=== PATIENT | female | born 1940 | race Caucasian/White ===

== ENCOUNTER 2017-07-08 18:58 | Outpatient (CLI) | payer MEDICARE | END 2017-07-08 18:59 | disposition home or self-care (01) | LOC: NAV LABSP 18:58 | PROVIDERS: ATTEND Internal Medicine | DX: E87.5 Hyperkalemia (principal) ==

== ENCOUNTER 2017-07-08 23:21 | Emergency (ER) | payer MEDICARE ==
[2017-07-08 23:58] LABS: #Basophils 0.1 thou/uL (0.0-0.2); #Eosinphils 0.3 thou/uL (0.0-0.7); #Lymphocytes 1.4 thou/uL (1.20-3.40); #Monocytes 0.6 thou/uL (0.11-0.59); #Neutrophils 3.6 thou/uL (1.40-6.50); %Eosinophils 4.6 % (0.0-10.0); %Lymphocytes 23.7 % (21.0-51.0); %Neutrophils 60.7 % (42.0-75.0); Hemoglobin 7.5 g/dL (12.0-16.0); Hypochromia MODERATE=16-30 cells (100X) (0-5/hpf); MDiff Complete? YES; Manual Diff?? NO; Mean Corpuscular HGB CONC 29.6 g/dL (32.0-36.0); Mean Corpuscular Hemoglobin 30.5 pg (27.0-31.0); Mean Platelet Volume 8.9 fL (7.4-10.4); PLT Morphology Comment Appears Adequate; Platelet Count 141 thou/uL (130-400); RBC Distribution Width 15.4 % (11.5-14.5); Red Blood Cell (RBC) Count 2.47 mill/uL (4.20-5.40); White Blood Cell (WBC) Count 5.9 thou/uL (4.8-10.8)
[2017-07-09] MEDS ORDERED: HYDROcodone/Acetaminophen 10/325 mg Tablet ONE (00:10)
[2017-07-09] MEDS ORDERED: Albuterol Sulfate 2.5 mg/0.5 ml Neb ONE (00:13)
[2017-07-09] MEDS ORDERED: Insulin Regular 300 UNITS/3 ML VIAL ONE (00:14)
[2017-07-09] MEDS ORDERED: Dextrose 50% Abboject 50 ML SYRINGE ONE (00:14)
[2017-07-09] MEDS ORDERED: Calcium Chloride 1 GM/10 ML Abboject SYRINGE ONE (00:15)
[2017-07-09 00:16] LABS: ALT (SGPT) 18 U/L (8-55); AST (SGOT) 17 U/L (5-34); Albumin 3.1 g/dL (3.4-4.8); Alkaline Phosphatase 154 U/L (40-150); Anion Gap 11 mmol/L (10-20); BUN (Urea Nitrogen) 73 mg/dL (9.8-20.1); Bilirubin, Total 0.4 mg/dL (0.2-1.2); CKMB 4.3 ng/mL (0-6.6); Calc. Creatinine Clearance 0 mL/min (70-130); Calcium 8.7 mg/dL (7.8-10.44); Carbon Dioxide 26 mmol/L (23-31); Chloride 100 mmol/L (98-107); Estimated GFR-MDRD 26; Globulin 3.9 g/dL (2.4-3.5); Glucose 214 mg/dL (83-110); Potassium 6.4 mmol/L (3.5-5.1); Sodium 131 mmol/L (136-145); Troponin I 0.019 ng/mL (< 0.028)
[2017-07-09] MEDS ORDERED: ALPRAZolam 0.25 MG TAB ONE (00:30)
[2017-07-09] MEDS ORDERED: Sodium Chloride 0.9% 1,000 ML ONE (00:30)
--- NOTE | 2017-07-09 07:33 | RAD ---
SINGLE VIEW OF THE CHEST: COMPARISON: 06/14/17. HISTORY: Recent trouble with postoperative wound infection in orthopedic surgery. Weakness and fever. FINDINGS: Single view of the chest shows a normal sized cardiomediastinal silhouette. There is no evidence of consolidation, mass, or pleural effusion. The bones are unremarkable. IMPRESSION: No evidence of acute cardiopulmonary disease. POS: [facility]
== END 2017-07-09 01:09 | disposition short-term general hospital (02) ==
LOC: NAV ERS 23:21
DX: E87.5 Hyperkalemia (principal); D64.9 Anemia, unspecified; E05.90 Thyrotoxicosis, unspecified without thyrotoxic crisis or storm; K21.9 Gastro-esophageal reflux disease without esophagitis; E78.5 Hyperlipidemia, unspecified; I10 Essential (primary) hypertension; E11.40 Type 2 diabetes mellitus with diabetic neuropathy, unspecified; E66.9 Obesity, unspecified; J45.909 Unspecified asthma, uncomplicated; F41.9 Anxiety disorder, unspecified; F32.9 Major depressive disorder, single episode, unspecified; Z79.4 Long term (current) use of insulin; Z79.899 Other long term (current) drug therapy
CPT/HCPCS: 51701; 71010; 82553; 84484; 93005; 94640; 94760; 96361; 96374; 96375; J1815; J7050; J7611

== ENCOUNTER 2017-07-27 13:40 | Emergency (ER) | payer MEDICARE ==
[2017-07-27] MEDS ORDERED: Bacitracin Zinc 1 Packet ONE (13:58)
== END 2017-07-27 14:12 | disposition home or self-care (01) ==
LOC: NAV ERS 13:40
DX: Z46.82 Encounter for fitting and adjustment of non-vascular catheter (principal); I10 Essential (primary) hypertension; K21.9 Gastro-esophageal reflux disease without esophagitis; E78.5 Hyperlipidemia, unspecified; E11.9 Type 2 diabetes mellitus without complications; E66.9 Obesity, unspecified; J44.9 Chronic obstructive pulmonary disease, unspecified; F41.9 Anxiety disorder, unspecified; F32.9 Major depressive disorder, single episode, unspecified; Z79.899 Other long term (current) drug therapy; Z79.4 Long term (current) use of insulin
CPT/HCPCS: 99284

== ENCOUNTER 2018-05-12 16:45 | Inpatient (IN) | payer MEDICARE ==
[2018-05-12] MEDS ORDERED: Acetaminophen 325 MG TAB PO PRN (19:18)
[2018-05-12] MEDS: Penicillin V Potassium 250 MG TAB PO SCH (20:02)
[2018-05-12] MEDS: Metoprolol Tartrate 50 MG TAB PO SCH (20:02)
[2018-05-12] MEDS: Famotidine 20 MG TAB PO SCH (20:02)
[2018-05-12] MEDS: Gabapentin 300 MG CAP PO SCH (20:03)
[2018-05-12] MEDS: HYDROcodone/Acetaminophen 10/325 mg Tablet PO PRN (20:03)
[2018-05-12] MEDS: traZODone HCl 50 MG TAB PO SCH (20:04)
[2018-05-12] MEDS: Doxepin HCl 25 MG CAP PO SCH (20:30)
[2018-05-12] MEDS: Bisacodyl 5 MG TAB PO PRN (22:16)
[2018-05-12] MEDS: Nystatin Cream 15 GM TUBE TOP SCH (22:18)
[2018-05-13] MEDS: Ondansetron ODT 4 MG TAB PO PRN (00:57)
[2018-05-13] MEDS: HYDROcodone/Acetaminophen 10/325 mg Tablet PO PRN ×5 (01:10→21:21)
[2018-05-13 05:27] LABS: #Basophils 0.1 thou/uL (0.0-0.2); #Eosinphils 0.3 thou/uL (0.0-0.7); #Monocytes 0.5 thou/uL (0.11-0.59); %Eosinophils 5.4 % (0.0-10.0); %Lymphocytes 20.1 % (21.0-51.0); %Monocytes 11.1 % (0.0-10.0); %Neutrophils 61.4 % (42.0-75.0); Hemoglobin 8.1 g/dL (12.0-16.0); Mean Corpuscular HGB CONC 31.1 g/dL (32.0-36.0); Mean Corpuscular Hemoglobin 27.1 pg (27.0-31.0); Mean Corpuscular Volume 87.1 fL (78.0-98.0); Mean Platelet Volume 7.2 fL (7.4-10.4); Platelet Count 191 thou/uL (130-400); RBC Distribution Width 16.4 % (11.5-14.5); Red Blood Cell (RBC) Count 2.99 mill/uL (4.20-5.40); White Blood Cell (WBC) Count 4.9 thou/uL (4.8-10.8)
[2018-05-13 05:47] LABS: ALT (SGPT) 12 U/L (8-55); AST (SGOT) 12 U/L (5-34); Albumin 2.7 g/dL (3.4-4.8); Alkaline Phosphatase 122 U/L (40-150); Anion Gap 13 mmol/L (10-20); BUN (Urea Nitrogen) 38 mg/dL (9.8-20.1); Bilirubin, Total 0.5 mg/dL (0.2-1.2); Calc. Creatinine Clearance 65 mL/min (70-130); Calcium 8.6 mg/dL (7.8-10.44); Carbon Dioxide 31 mmol/L (23-31); Chloride 97 mmol/L (98-107); Estimated GFR-MDRD 37; Globulin 4.1 g/dL (2.4-3.5); Glucose 179 mg/dL (83-110); Protein, Total 6.8 g/dL (6.0-8.3); Sodium 136 mmol/L (136-145)
[2018-05-13] MEDS: Levothyroxine Sodium 125 MCG TAB PO SCH (06:10)
[2018-05-13] MEDS: Insulin NPH/Reg Insulin Hm 300 UNITS/3 ML VIAL SC SCH ×2 (08:27→17:16)
[2018-05-13] MEDS: Penicillin V Potassium 250 MG TAB PO SCH ×2 (08:28→21:04)
[2018-05-13] MEDS: Amlodipine 5 MG TAB PO SCH (08:28)
[2018-05-13] MEDS: Gabapentin 300 MG CAP PO SCH ×2 (08:28→21:04)
[2018-05-13] MEDS: Ferrous Sulfate 325 MG TAB PO SCH (08:29)
[2018-05-13] MEDS: Metoprolol Tartrate 50 MG TAB PO SCH ×2 (08:29→21:04)
[2018-05-13] MEDS: Doxepin HCl 25 MG CAP PO SCH ×2 (08:29→21:04)
[2018-05-13] MEDS: Famotidine 20 MG TAB PO SCH ×2 (08:29→21:05)
[2018-05-13] MEDS: Nystatin Cream 15 GM TUBE TOP SCH ×2 (08:30→15:34)
[2018-05-13 11:19] LABS: Bilirubin Negative (Negative); Blood, Urine Small (Negative); Clarity Slightly Cloudy (Clear); Glucose, Urine (Dipstick) Negative (Negative); Leukocyte Trace (Negative); Nitrite Negative (Negative); Protein, Urine (Dipstick) 30 mg/dL (Neg-Trace); pH, Urine 5.5 (5.0-9.0)
[2018-05-13] MEDS: hydrOXYzine 25 MG TAB PO PRN ×3 (11:39→21:04)
[2018-05-13 11:40] LABS: Bacteria/HPF Rare-Few HPF (None Seen); RBC/HPF 0-3 HPF (0-3); WBC/HPF 0-3 HPF (0-3); Yeast-All Forms Rare HPF (None Seen)
[2018-05-13] MEDS: traZODone HCl 50 MG TAB PO SCH (21:04)
--- NOTE | 2018-05-13 22:55 | HP ---
DATE OF ADMISSION: To the [facility] on 05/13/2018 HISTORY OF PRESENT ILLNESS: The patient is a 77-year-old white female previously known by myself whe n she was in the [facility] where she had open reduction and internal fixation of r ight ankle fracture. At that time, she did poorly with therapy because of noncompliance and because of chronic pain and lack of pain relief. Since that time; however, she has been living in assisted a nd disabled apartment, not ambulating well, and has had dependent edema and swelling of both lower le gs. She has developed a cellulitis and was admitted to [place] with distensible recurrence of the cellulitis; however, after treatment, it was felt that she had lymphedema with the risk for recurren t cellulitis, but no active cellulitis at this time. She also has a history of diastolic heart failu re, COPD, morbid obesity with dyspnea limiting her exercise capability. She, however, is admitted to [facility] as she is stating that she wishes to continue with PT. She is walking at this time with a walker with main complaint of dyspnea on exertion, but not stopping her therapy and a re current rash over entire body, which has been evaluated at [facility] with biopsy, which showed no ev idence of fungus or cellulitis, but more like psoriasis. This is being evaluated further by [facility], Pathology; however, treatment is limited by a history of an allergy to cortisone crea m. PAST MEDICAL HISTORY: Also remarkable for nonerosive gastritis, dyslipidemia, diabetes type 2, anxie ty and depression, chronic pain, hypertension. PAST SURGICAL HISTORY: Positive for the open reduction and internal fixation of right tibia fracture , bilateral shoulder repair, bilateral knee surgeries, cholecystectomy. REVIEW OF SYSTEMS: HEENT: She denies any headaches, dizziness, change in vision or hearing, hoarsen ess or dysphagia. Pulmonary: She has chronic dyspnea, but with no cough, sputum production or wheez ing. Cardiovascular: She has occasional pain, but had no diagnosis of angina cardiac enzymes. Gastrointestinal: She has no nausea, vomiting, diarrhea, constipation, or abdominal pain. Genitou rinary: She denies dysuria, hematuria, or nocturia. Musculoskeletal: She has chronic pain in her b ack and legs. There are swelling and tenderness of both legs with erythema, but with no drainage. N eurologic: She denies localized numbness, weakness in arms or extremities. PHYSICAL EXAMINATION: GENERAL: Patient is a morbidly obese white female, sitting up in bed, eating supper, is oriented x3 and cooperative. VITAL SIGNS: Pulse is 62, temperature is 99, respirations 18, O2 sats 97% on room air, blood pressur e 140/63. HEENT: Pupils are equal, round, and react to light and accommodation. Sclerae are anicteric. Conju nctivae pale. Oral mucous membranes well hydrated. NECK: Supple. There are no nodes or masses. JVP is not elevated. LUNGS: Show decreased breath sounds in the bases. No rales or rhonchi. CARDIAC: Shows rapid regular rhythm. No gallops or murmurs. ABDOMEN: Soft and nontender. SKIN AND EXTREMITIES: Display diffuse red rash over entire body, worse under the panniculus, also on the back, and lower legs with no drainage or warmth. NEUROLOGICAL: Shows diffuse weakness, but no focal findings. Cranial nerves are intact. LABORATORY DATA: Shows a white count of 4900, hematocrit 26, hemoglobin 8.1, sodium 136, potassium 5 .0, chloride 97, bicarbonate 31, BUN 38, creatinine 1.37, glucose 179. Accu-Cheks range from 193 to 224. Liver function studies within normal limits. Urinalysis within normal limits. Pathology of th e skin biopsy as mentioned above shows psoriasiform findings with no fungus or bacterial infection. ASSESSMENT AND PLAN: 1. A 77-year-old white female with history of morbid obesity, subsequent fatty liver, who presents w ith recurrent erythema and tenderness. Lymphedema of her legs with no evidence of infection. She go s been in a wheelchair, but had been walking previously despite distant open reduction and internal f ixation of right ankle and will start on PT and OT. 2. Her psoriasiform rash cannot be treated with steroids, so will start on Elidel. Monitor response . 3. Diabetic steatohepatitis. We will be monitored closely with no evidence of at this time. 4. Type 2 diabetes. We will be treated with sliding scale and her previous medication. 5. Acute kidney injury. We will be monitored closely as appears to have stabilized. We will contin ue to monitor. 6. Severe deconditioning. We will be started on PT with only pain medications as ordered. 7. Chronic pain. We will be treated any different medications that had been treated previously.
[2018-05-14] MEDS: HYDROcodone/Acetaminophen 10/325 mg Tablet PO PRN ×6 (01:21→23:31)
[2018-05-14] MEDS: Levothyroxine Sodium 125 MCG TAB PO SCH (05:41)
[2018-05-14] MEDS: hydrOXYzine 25 MG TAB PO PRN ×3 (05:42→15:23)
[2018-05-14] MEDS: Insulin NPH/Reg Insulin Hm 300 UNITS/3 ML VIAL SC SCH ×2 (08:37→17:22)
[2018-05-14] MEDS: Gabapentin 300 MG CAP PO SCH ×2 (08:38→22:01)
[2018-05-14] MEDS: Amlodipine 5 MG TAB PO SCH (08:38)
[2018-05-14] MEDS: Penicillin V Potassium 250 MG TAB PO SCH ×2 (08:38→22:01)
[2018-05-14] MEDS: Doxepin HCl 25 MG CAP PO SCH ×2 (08:38→22:01)
[2018-05-14] MEDS: Ferrous Sulfate 325 MG TAB PO SCH (08:38)
[2018-05-14] MEDS: Famotidine 20 MG TAB PO SCH ×2 (08:38→22:00)
[2018-05-14] MEDS: Metoprolol Tartrate 50 MG TAB PO SCH ×2 (08:38→22:00)
--- NOTE | 2018-05-14 16:05 | PRG ---
DATE OF SERVICE: 05/14/2018 SUBJECTIVE: The patient feels well, sitting up in the bed, is cooperating with therapy with only com plaint of her right knee giving way. PT agrees with this knee to be unstable. However, she is eatin g well and is having controlled pain. She is still having problems with itching and a cream that was ordered for her psoriasiform rash has not returned, as she is unable to tolerate steroid creams. OBJECTIVE: Shows, VITAL SIGNS: Blood pressure is 155/67, pulse 59, O2 sats 96% on 1-1/2 liters, respirations 56. ABDOMEN: Obese and nontender with no masses or organomegaly. SKIN AND EXTREMITIES: Show 2+ edema, no clubbing, cyanosis. Show diffuse excoriated areas of erythe ma and mild papular vesicular rash. ASSESSMENT: 1. Improving deconditioning, resolving lymphedema, cellulitis of the legs, on oral antibiotics and c ompression wraps. 2. Persistent rash of unknown etiology with biopsy consistent with psoriasiform rash. 3. Right knee weakness, status post total knee several years ago. 4. Chronic pain, controlled on medication at this time. 5. Type 2 diabetes with fair control. 5. Diastolic heart failure, compensated at this time. PLAN: 1. Continue PT, OT, await Elidel cream for psoriasis. 2. Continue Accu-Cheks to monitor and titrate and control diabetes. 3. Continue pain relief as ordered previously with Magnolia and gabapentin. 4. Continue Humulin N 40 units in the morning and 10 units 70/30 in the evening.
[2018-05-14] MEDS: traZODone HCl 50 MG TAB PO SCH (22:01)
[2018-05-15] MEDS: Bisacodyl 5 MG TAB PO PRN (00:40)
[2018-05-15] MEDS: HYDROcodone/Acetaminophen 10/325 mg Tablet PO PRN ×5 (05:37→21:32)
[2018-05-15] MEDS: Levothyroxine Sodium 125 MCG TAB PO SCH (05:37)
[2018-05-15] MEDS: hydrOXYzine 25 MG TAB PO PRN ×5 (05:37→21:33)
[2018-05-15] MEDS: Famotidine 20 MG TAB PO SCH ×2 (08:49→21:33)
[2018-05-15] MEDS: Ferrous Sulfate 325 MG TAB PO SCH (08:49)
[2018-05-15] MEDS: Doxepin HCl 25 MG CAP PO SCH ×2 (08:49→21:33)
[2018-05-15] MEDS: Gabapentin 300 MG CAP PO SCH ×2 (08:49→21:32)
[2018-05-15] MEDS: Metoprolol Tartrate 50 MG TAB PO SCH ×2 (08:50→21:32)
[2018-05-15] MEDS: Amlodipine 5 MG TAB PO SCH (08:50)
[2018-05-15] MEDS: Insulin NPH/Reg Insulin Hm 300 UNITS/3 ML VIAL SC SCH ×2 (08:57→17:37)
[2018-05-15] MEDS: Penicillin V Potassium 250 MG TAB PO SCH ×2 (09:02→21:33)
[2018-05-15] MEDS: Ondansetron ODT 4 MG TAB PO PRN (11:51)
[2018-05-15] MEDS ORDERED: Magnesium Citrate 300 ML BOT PO SCH (13:00)
[2018-05-15] MEDS ORDERED: Permethrin 5% Cream 60 GM TUBE TOP SCH (21:00)
--- NOTE | 2018-05-15 21:11 | PRG ---
DATE OF SERVICE: 05/15/2018 SUBJECTIVE: The patient feels well except for diffuse pruritic rash with excoriation over entire bod y, also was complaining that she is not getting her pain medication and was told that she is getting exactly I was given at [place]. Her wound dressings have not been changed today, but will be stroud germán on Thursday. OBJECTIVE: VITAL SIGNS: Shows her temperature is 96.8, pulse 64, respirations 20, and O2 sats 95% on 2 liters. LUNGS: Clear. CARDIAC: Shows regular rhythm. ABDOMEN: Soft, nontender. SKIN: Diffuse excoriations and red papules over her back, chest, abdomen, and legs. ASSESSMENT: 1. Recurrent pruritic rash with negative biopsy for fungus, but awaiting new treatment for psoriasis is unable to take cortisone so we will treat empirically for possible scabies with Elimite and monit or response. 2. Chronic pain, being given medications exactly as prescribed at [place] and told that would be given. 3. Lymphedema of legs with wraps being done by [facility] to be removed and changed in 2 days. 4. Type 2 diabetes with adequate control, occasional inconsistencies, and we will not increase medic ation. 5. Diastolic heart failure, compensated at this time. 6. Chronic obstructive pulmonary disease, oxygen dependent on 1-2 liters. We will continue.
[2018-05-15] MEDS: traZODone HCl 50 MG TAB PO SCH (21:33)
[2018-05-16] MEDS: HYDROcodone/Acetaminophen 10/325 mg Tablet PO PRN ×5 (01:30→20:16)
[2018-05-16] MEDS: hydrOXYzine 25 MG TAB PO PRN ×3 (01:51→14:02)
[2018-05-16] MEDS: Bisacodyl 5 MG TAB PO PRN (06:02)
[2018-05-16] MEDS: Levothyroxine Sodium 125 MCG TAB PO SCH (06:04)
[2018-05-16] MEDS: Oxymetazoline HCl 0.05% ( 15 ML ) NASAL PRN (08:21)
[2018-05-16] MEDS: Penicillin V Potassium 250 MG TAB PO SCH ×2 (08:22→20:15)
[2018-05-16] MEDS: Gabapentin 300 MG CAP PO SCH ×2 (08:22→20:16)
[2018-05-16] MEDS: Ferrous Sulfate 325 MG TAB PO SCH (08:22)
[2018-05-16] MEDS: Famotidine 20 MG TAB PO SCH ×2 (08:22→20:16)
[2018-05-16] MEDS: Amlodipine 5 MG TAB PO SCH (08:23)
[2018-05-16] MEDS: Metoprolol Tartrate 50 MG TAB PO SCH ×2 (08:23→20:15)
[2018-05-16] MEDS: Insulin NPH/Reg Insulin Hm 300 UNITS/3 ML VIAL SC SCH ×2 (08:24→17:36)
[2018-05-16] MEDS: Doxepin HCl 25 MG CAP PO SCH ×2 (08:24→20:15)
[2018-05-16] MEDS: traZODone HCl 50 MG TAB PO SCH (20:15)
[2018-05-17] MEDS: HYDROcodone/Acetaminophen 10/325 mg Tablet PO PRN ×6 (00:29→23:55)
[2018-05-17] MEDS: hydrOXYzine 25 MG TAB PO PRN ×4 (00:29→21:41)
[2018-05-17] MEDS: Levothyroxine Sodium 125 MCG TAB PO SCH (06:23)
[2018-05-17] MEDS: Ferrous Sulfate 325 MG TAB PO SCH (08:59)
[2018-05-17] MEDS ORDERED: Insulin NPH/Reg Insulin Hm 300 UNITS/3 ML VIAL SC SCH ×2 (09:00)
[2018-05-17] MEDS: Amlodipine 5 MG TAB PO SCH (09:00)
--- NOTE | 2018-05-17 09:00 | PRG ---
DATE OF SERVICE: 05/16/2018 SUBJECTIVE: The patient is lying in the bed, complaining of itching, appears to be somewhat improved and persistent pain in her back, controlled on pain medication with no therapy done today. She has been fairly compliant to her diet. OBJECTIVE: VITAL SIGNS: Shows her temperature is 98.4, pulse 59, respirations 20, O2 sats 97% on 2 liters, bloo d pressure is 135/64. LABORATORY: Accu-Chek still elevated to 103, 264 on medications of insulin 50 units in the morning, NPH 70/30 and 10 units at night. ASSESSMENT: Uncontrolled diabetes. PLAN: 1. Increase Novolin 70/30 to 55 in the morning. Continue 10 at night. It is what the patient can a fford at home. 2. Monitor rash for improvement after treatment with Elimite. 3. Continue penicillin 250 twice daily for prevention of recurrent cellulitis and change wound dress ings with wound care. 4. Continue PT and OT.
[2018-05-17] MEDS: Gabapentin 300 MG CAP PO SCH ×2 (09:01→19:46)
[2018-05-17] MEDS: Doxepin HCl 25 MG CAP PO SCH ×2 (09:01→19:45)
[2018-05-17] MEDS: Famotidine 20 MG TAB PO SCH ×2 (09:01→19:45)
[2018-05-17] MEDS: Metoprolol Tartrate 50 MG TAB PO SCH ×2 (09:01→20:11)
[2018-05-17] MEDS: Oxymetazoline HCl 0.05% ( 15 ML ) NASAL PRN (09:02)
[2018-05-17] MEDS: Penicillin V Potassium 250 MG TAB PO SCH ×2 (09:11→19:46)
[2018-05-17] MEDS: Insulin NPH/Reg Insulin Hm 300 UNITS/3 ML VIAL SC SCH (16:31)
[2018-05-17] MEDS ORDERED: traZODone HCl 50 MG TAB ONE (20:05)
[2018-05-17] MEDS: traZODone HCl 50 MG TAB PO SCH (20:10)
[2018-05-17] MEDS: Ondansetron ODT 4 MG TAB PO PRN (20:11)
[2018-05-18] MEDS: hydrOXYzine 25 MG TAB PO PRN ×4 (04:39→19:52)
[2018-05-18] MEDS: Levothyroxine Sodium 125 MCG TAB PO SCH (04:39)
[2018-05-18] MEDS: HYDROcodone/Acetaminophen 10/325 mg Tablet PO PRN ×4 (04:39→19:47)
[2018-05-18] MEDS: Ferrous Sulfate 325 MG TAB PO SCH (08:44)
[2018-05-18] MEDS: Famotidine 20 MG TAB PO SCH ×2 (08:45→19:54)
[2018-05-18] MEDS: Gabapentin 300 MG CAP PO SCH ×2 (08:45→19:53)
[2018-05-18] MEDS: Metoprolol Tartrate 50 MG TAB PO SCH ×2 (08:45→20:04)
[2018-05-18] MEDS: Doxepin HCl 25 MG CAP PO SCH ×2 (08:45→19:59)
[2018-05-18] MEDS: Penicillin V Potassium 250 MG TAB PO SCH ×2 (08:45→19:54)
[2018-05-18] MEDS: Amlodipine 5 MG TAB PO SCH (08:45)
[2018-05-18] MEDS: Oxymetazoline HCl 0.05% ( 15 ML ) NASAL PRN (08:46)
[2018-05-18] MEDS: Insulin NPH/Reg Insulin Hm 300 UNITS/3 ML VIAL SC SCH ×2 (08:47→17:07)
--- NOTE | 2018-05-18 16:31 | PRG ---
DATE OF SERVICE: 05/18/2018 SUBJECTIVE: The patient feels somewhat better, complained of pain in her leg, but is cooperating wit h therapy, he is having decreased but persistent itching on decreased excoriation of her skin rash. States that she is still short of breath, requiring oxygen, although her O2 saturations have remained normal. OBJECTIVE: Shows O2 sats 95% on 1-1/2 liters, temperature is 98, pulse 84, respirations 18, blood pr essure 131/92, white count 4900, hematocrit 26, hemoglobin 8.1 previously. Accu-Cheks are stable 147 -274. The patient is working with physical therapy and did stand and take some steps, which states t hat her knee gave away because of knee pain, although did not appear to be weak. ASSESSMENT: Morbid obesity, chronic pain, uncontrolled diabetes, recurrent lymphedema, cellulitis, r ecurrent rash with biopsy showing pathology, but with no fungus or parasites or bacteria, but a ppeared to possibly improve after LMA. PLAN: 1. Increase Novolin 70/30-60 units every morning. Continue 10 units in the afternoon. Monitor Accu -Cheks. 2. Continue to monitor rash and attempt to obtain further information from previous biopsy. 3. Current need for oxygen, which apparently is new. According to the patient, we will discontinue oxygen and monitor sats. 4. Chronic pain. We will continue on the same pain medications as previous per agreement. 5. Resolving cellulitis and lymphedema. We will continue on penicillin.
[2018-05-19] MEDS: HYDROcodone/Acetaminophen 10/325 mg Tablet PO PRN ×5 (00:05→19:20)
[2018-05-19] MEDS: hydrOXYzine 25 MG TAB PO PRN ×4 (00:06→18:00)
[2018-05-19] MEDS: Levothyroxine Sodium 125 MCG TAB PO SCH (05:35)
[2018-05-19] MEDS: Ferrous Sulfate 325 MG TAB PO SCH (08:31)
[2018-05-19] MEDS: Doxepin HCl 25 MG CAP PO SCH ×2 (08:31→21:36)
[2018-05-19] MEDS: Gabapentin 300 MG CAP PO SCH ×2 (08:32→21:36)
[2018-05-19] MEDS: Penicillin V Potassium 250 MG TAB PO SCH ×2 (08:32→21:35)
[2018-05-19] MEDS: Amlodipine 5 MG TAB PO SCH (08:33)
[2018-05-19] MEDS: Metoprolol Tartrate 50 MG TAB PO SCH ×2 (08:36→21:35)
[2018-05-19] MEDS: Famotidine 20 MG TAB PO SCH ×2 (08:37→21:36)
[2018-05-19] MEDS: Insulin NPH/Reg Insulin Hm 300 UNITS/3 ML VIAL SC SCH ×2 (09:21→17:55)
--- NOTE | 2018-05-19 17:59 | PRG ---
DATE OF SERVICE: 05/19/2018 SUBJECTIVE: The patient feels better, sitting up in room visiting with daughter. Having persistent, but decreased itching. Denying any shortness of breath, stating however, she is unable to maintain her sugars below 130 without feeling bad and does not want to do this. She also states that she is w alking as much as she possibly can. Accu-Cheks range from 72 to 257 as the patient is very noncompliant to diet and eats whenever she wan ts and whatever she wants. The patient is cooperating with physical therapy somewhat, but can only w alk 20 feet, although she is standby assistance for transfers, needs frequent rest breaks. She is wi lling to work, but has not finished the exercise. Needs moderate assistance for bathing and assistan ce in ADLs. OBJECTIVE: VITAL SIGNS: Blood pressure is 159/81; O2 sats 94% on 1.5 liters, dropped to 78% on room air; respir ations 18; pulse 72; afebrile. LUNGS: Clear. CARDIAC: Regular rhythm. ABDOMEN: Soft and nontender, but obese. SKIN AND EXTREMITIES: Diffuse excoriations, but appeared to be slightly improved. ASSESSMENT: Morbid obesity, stable; chronic pain, stable; uncontrolled diabetes secondary to noncomp liance, stable; recurrent lymphedema, on oral penicillin to prevent cellulitis; and improved rash con sistent with psoriasis, but appears to have slightly improved with treatment for parasites with Elimi te. PLAN: Continue Novolin 70/30, 60 units in the morning and 10 units in the afternoon. Stress complia nce to diet. Continue stress cooperation with PT. Continue oxygen as she most likely requires this for the rest of her life, because of morbid obesity and most likely Pickwickian syndrome. Continue o ral antibiotics for prevention of recurrent cellulitis. Chronic pain, continue on the same medicatio ns prehospitalization as per agreement.
--- NOTE | 2018-05-19 18:38 | PRG ---
DATE OF SERVICE: 05/19/2018 SUBJECTIVE: The patient feels miserable with persistent pruritus and scratching, has been very nonco mpliant today to pain medication, stating that the nurses are not giving her medications on time, ask ing for more medications. She has also been very manipulative about her therapy, stating that she is walking, but has to rest. 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 OBJECTIVE: VITAL SIGNS: Blood pressure is 163/66, O2 sats 92% on 2 liters, respirations 18, pulse 73, afebrile. SKIN: Shows diffuse erythematous rash with excoriation. LUNGS: Clear with O2 sat is 93% on 2 liters. CARDIAC: Regular rhythm. ABDOMEN: Obese and nontender with a large panniculus. ASSESSMENT: 1. Persistent erythematous rash with negative biopsy only for psoriasiform lesion who has been treat ed for scabies with no response and now patient has agreed to attempt cortisone lotion, although she states she may have had a reaction in the past. She understands this what is required for improvemen t. 2. Morbid obesity with refusal to comply to diet. 3. Uncontrolled diabetes secondary to refusal to comply with diet. 4. Chronic pain on routine medications with no change in therapy, but persistent pain. 5. New problem of hypoxemia, most likely due to Pickwickian syndrome, although patient states she is walking. PLAN: 1. Start betamethasone lotion topically twice a day to rash. 2. Obtain chest x-ray in the a.m. to monitor for any problems with atelectasis or pneumonia causing hypoxemia. 3. Stress need to comply to diet and hard to control sugar and lose weight. 4. Continue pain medications as ordered previously.
[2018-05-19] MEDS ORDERED: Betamethasone Val 0.1% Lotion 60 ML BOT TOP SCH (21:00)
[2018-05-20] MEDS: hydrOXYzine 25 MG TAB PO PRN ×4 (02:42→22:30)
[2018-05-20] MEDS: HYDROcodone/Acetaminophen 10/325 mg Tablet PO PRN ×4 (02:42→20:37)
[2018-05-20] MEDS: Levothyroxine Sodium 125 MCG TAB PO SCH (05:23)
[2018-05-20] MEDS: Doxepin HCl 25 MG CAP PO SCH ×2 (08:34→20:36)
[2018-05-20] MEDS: Amlodipine 5 MG TAB PO SCH (08:34)
[2018-05-20] MEDS: Famotidine 20 MG TAB PO SCH ×2 (08:34→20:36)
[2018-05-20] MEDS: Penicillin V Potassium 250 MG TAB PO SCH ×2 (08:34→20:36)
[2018-05-20] MEDS: Gabapentin 300 MG CAP PO SCH ×2 (08:34→20:36)
[2018-05-20] MEDS: Ferrous Sulfate 325 MG TAB PO SCH (08:35)
[2018-05-20] MEDS: Insulin NPH/Reg Insulin Hm 300 UNITS/3 ML VIAL SC SCH ×2 (08:35→16:44)
[2018-05-20] MEDS: Metoprolol Tartrate 50 MG TAB PO SCH ×2 (08:35→20:36)
[2018-05-20] MEDS: Betamethasone Val 0.1% Lotion 60 ML BOT TOP SCH ×2 (16:36→20:36)
[2018-05-20] MEDS: Ondansetron ODT 4 MG TAB PO PRN (16:41)
--- NOTE | 2018-05-20 17:44 | PRG ---
DATE OF SERVICE: 05/20/2018 SUBJECTIVE: The patient feels well, sitting in bed, but is still itching. States she has not receiv ed her lotion, states she cannot do her therapy today because of shortness of breath. However, upon questioning the nurses, it is found that she has not received her lotion yet today. We will give thi s afternoon and she refused therapy, stated that she was unable to because of shortness of breath. H owever, vital signs did not change during the therapy at all. OBJECTIVE: VITAL SIGNS: Shows her blood pressure is 182/71, pulse 58, O2 sat is 98% on 2 liters. Afebrile. Ac cu-Cheks range from 112-210. LUNGS: Clear. CARDIAC: Shows regular rhythm. SKIN AND EXTREMITIES: Show diffuse excoriated lesions with bleeding and erythema over abdomen, legs and arms. ASSESSMENT: 1. Persistent neurodermatitis excoriation. We will attempt to treat with steroid lotion while await ing final biopsy. Poor exercise tolerance and refusal to ambulate and subsequent manipulation with n o evidence of dyspnea and chest pain. 2. Type 2 diabetes with improving control secondary to family not bringing in poor diet. 3. Chronic pain on routine pain medications with no change per rectum her agreement on admission. 4. Persistent hypoxemia, most likely due to Pickwickian syndrome. PLAN: 1. Stress need to continue ambulation, stress to nurses need to document all refusals, stress need t o start on steroid lotion betamethasone. 2. Continue pain medications as ordered. 2. Continue to stress a diabetic diet.
[2018-05-21] MEDS: HYDROcodone/Acetaminophen 10/325 mg Tablet PO PRN ×5 (00:37→19:43)
[2018-05-21] MEDS: Ondansetron ODT 4 MG TAB PO PRN ×2 (04:14→11:08)
[2018-05-21] MEDS: hydrOXYzine 25 MG TAB PO PRN ×4 (05:07→21:24)
[2018-05-21] MEDS: Levothyroxine Sodium 125 MCG TAB PO SCH (05:07)
[2018-05-21] MEDS: Amlodipine 5 MG TAB PO SCH (08:33)
[2018-05-21] MEDS: Doxepin HCl 25 MG CAP PO SCH ×2 (08:36→20:58)
[2018-05-21] MEDS: Penicillin V Potassium 250 MG TAB PO SCH ×2 (08:36→20:58)
[2018-05-21] MEDS: Metoprolol Tartrate 50 MG TAB PO SCH ×2 (08:36→20:58)
[2018-05-21] MEDS: Betamethasone Val 0.1% Lotion 60 ML BOT TOP SCH ×2 (08:36→20:59)
[2018-05-21] MEDS: Ferrous Sulfate 325 MG TAB PO SCH (08:36)
[2018-05-21] MEDS: Gabapentin 300 MG CAP PO SCH ×2 (08:36→20:58)
[2018-05-21] MEDS: Famotidine 20 MG TAB PO SCH ×2 (08:36→20:58)
[2018-05-21] MEDS: Insulin NPH/Reg Insulin Hm 300 UNITS/3 ML VIAL SC SCH ×2 (08:37→17:02)
[2018-05-21] MEDS: Bisacodyl 5 MG TAB PO PRN (08:46)
[2018-05-21] MEDS ORDERED: Permethrin 5% Cream 60 GM TUBE TOP SCH ×2 (15:45→21:00)
--- NOTE | 2018-05-21 16:35 | PRG ---
DATE OF SERVICE: 05/21/2018 SUBJECTIVE: The patient is lying in the bed, on nebulizer treatment. States she cooperated well wit h therapy today, but has persistent itching despite being treated with betamethasone ointment to her rash. OBJECTIVE: GENERAL: Shows she did walk 60 feet and 90 feet, requiring rest, but did cooperate. VITAL SIGNS: Showed her blood pressure was stable at 123/55, O2 sats 96% on 2 liters, respirations 2 0, pulse 70, afebrile. Accu-Cheks were improved greatly with Accu-Chek ranging from 130-210. LUNGS: Showed decreased breath sounds, but no rales or rhonchi. ABDOMEN: Distended, obese with panniculus. SKIN: With diffuse erythematous rash, secondary to neurodermatitis, superimposed on underlying rash of unknown etiology. PLAN: 1. Stressed the need to discontinue all scratching. 2. Repeat Elimite next week for possibility of scabies treatment. Continue betamethasone cream. 3. Continue to stress compliance with physical therapy. 4. Continue to stress compliance with diet.
[2018-05-22] MEDS: HYDROcodone/Acetaminophen 10/325 mg Tablet PO PRN ×6 (01:22→21:53)
[2018-05-22] MEDS: Ondansetron ODT 4 MG TAB PO PRN (01:22)
[2018-05-22] MEDS: hydrOXYzine 25 MG TAB PO PRN ×4 (05:31→20:32)
[2018-05-22] MEDS: Levothyroxine Sodium 125 MCG TAB PO SCH (05:31)
[2018-05-22] MEDS: Insulin NPH/Reg Insulin Hm 300 UNITS/3 ML VIAL SC SCH ×2 (08:28→16:14)
[2018-05-22] MEDS: Amlodipine 5 MG TAB PO SCH (08:29)
[2018-05-22] MEDS: Penicillin V Potassium 250 MG TAB PO SCH ×2 (08:29→20:31)
[2018-05-22] MEDS: Metoprolol Tartrate 50 MG TAB PO SCH ×2 (08:30→20:32)
[2018-05-22] MEDS: Betamethasone Val 0.1% Lotion 60 ML BOT TOP SCH ×2 (08:30→20:52)
[2018-05-22] MEDS: Ferrous Sulfate 325 MG TAB PO SCH (08:30)
[2018-05-22] MEDS: Gabapentin 300 MG CAP PO SCH ×2 (08:30→20:31)
[2018-05-22] MEDS: Famotidine 20 MG TAB PO SCH ×2 (08:30→20:31)
[2018-05-22] MEDS: Doxepin HCl 25 MG CAP PO SCH ×2 (08:30→20:32)
[2018-05-22] MEDS: Bisacodyl 5 MG TAB PO PRN (08:39)
--- NOTE | 2018-05-22 17:12 | PRG ---
DATE OF SERVICE: 05/22/2018 SUBJECTIVE: Ms. Huynh is doing well. Denies any complaints, resting comfortably. No family at [facility], discussed with nursing. OBJECTIVE: VITAL SIGNS: She is afebrile, heart rate 84, respirations 20, oxygen saturation is 95% on 2 liters, blood pressure is 150/66. CARDIOVASCULAR: S1, S2 plus. RESPIRATORY: Normal vesicular breath sounds. ABDOMEN: Soft, nontender, obese. Bowel sounds heard in all quadrants. EXTREMITIES: Without cyanosis or clubbing. SKIN: Shows evidence for excoriation and scabbing all over with some dryness. LABORATORY VALUES: Shows blood sugars of 268, 249, 216, 140. IMPRESSION: 1. Dermatitis with cellulitis, possible scabies. She is being treated with Elimite. 2. Dyslipidemia. 3. Diabetes mellitus type 2. 4. Hypertension. 5. Chronic pain. PLAN: 1. Continue current medications. 2. Nutritional support. 3. Accu-Cheks with sliding scale coverage. 4. Deep venous thrombosis and stress ulcer prophylaxis. 5. Decubitus precautions. 6. Routine laboratory values. 7. Physical therapy. 8. Discussed with patient in detail and all questions answered.
[2018-05-22] MEDS: Nystatin Powder 15 GM BOT TOP SCH (20:32)
[2018-05-23] MEDS: HYDROcodone/Acetaminophen 10/325 mg Tablet PO PRN ×5 (02:18→23:06)
[2018-05-23] MEDS: Levothyroxine Sodium 125 MCG TAB PO SCH (06:10)
[2018-05-23] MEDS: Ferrous Sulfate 325 MG TAB PO SCH (08:14)
[2018-05-23] MEDS: Gabapentin 300 MG CAP PO SCH ×2 (08:14→20:28)
[2018-05-23] MEDS: Doxepin HCl 25 MG CAP PO SCH ×2 (08:17→20:28)
[2018-05-23] MEDS: Penicillin V Potassium 250 MG TAB PO SCH ×2 (08:17→20:28)
[2018-05-23] MEDS: Amlodipine 5 MG TAB PO SCH (08:18)
[2018-05-23] MEDS: Metoprolol Tartrate 50 MG TAB PO SCH ×2 (08:18→20:28)
[2018-05-23] MEDS: hydrOXYzine 25 MG TAB PO PRN ×4 (08:18→20:28)
[2018-05-23] MEDS: Famotidine 20 MG TAB PO SCH ×2 (08:20→20:27)
[2018-05-23] MEDS: Bisacodyl 5 MG TAB PO PRN (08:20)
[2018-05-23] MEDS: Insulin NPH/Reg Insulin Hm 300 UNITS/3 ML VIAL SC SCH ×2 (08:22→17:02)
[2018-05-23] MEDS: Nystatin Powder 15 GM BOT TOP SCH ×2 (08:23→21:42)
[2018-05-23] MEDS: Betamethasone Val 0.1% Lotion 60 ML BOT TOP SCH ×2 (08:31→21:42)
--- NOTE | 2018-05-23 16:01 | PRG ---
DATE OF SERVICE: 05/23/2018 SUBJECTIVE: Ms. Huynh is doing well except she did have an episode of low blood sugar last night. Sh e states that she did not eat her dinner very well. No other concerns or questions. Discussed with nursing and nursing state that she would benefit from MiraLax daily. OBJECTIVE: VITAL SIGNS: She is afebrile, heart rate is 83, respirations 21, oxygen saturation 94% on 2 liters, blood pressure 161/72. CARDIOVASCULAR: S1, S2 plus. RESPIRATORY SYSTEM: Normal vesicular breath sounds. ABDOMEN: Soft, nontender, obese. Bowel sounds heard in all quadrants. EXTREMITIES: Without cyanosis or clubbing. SKIN: Seems to be improving excoriation. CENTRAL NERVOUS SYSTEM: Grossly nonfocal. LABORATORY VALUES: Blood sugars are 163, 65, 100, 177 and 159. IMPRESSION: 1. Dermatitis with cellulitis. 2. Dyslipidemia. 3. Diabetes mellitus type 2. 4. Hypertension. 5. Chronic pain. 6. Deconditioning. 7. Constipation. PLAN: 1. MiraLax daily. 2. High fiber diet. 3. Increase p.o. water intake. 4. Continue current medications. 5. A 1800 calorie heart healthy ADA diet. 6. Accu-Cheks with sliding scale coverage. 7. Continue physical therapy. 8. Recheck laboratory values in the morning. 9. Dr. Ankita mobley.
[2018-05-23] MEDS: Ondansetron ODT 4 MG TAB PO PRN (20:28)
[2018-05-23] MEDS: Permethrin 5% Cream 60 GM TUBE TOP SCH ×3 (21:42→23:12)
[2018-05-24] MEDS: hydrOXYzine 25 MG TAB PO PRN ×4 (03:50→20:16)
[2018-05-24] MEDS: HYDROcodone/Acetaminophen 10/325 mg Tablet PO PRN ×4 (03:50→20:16)
[2018-05-24] MEDS: Levothyroxine Sodium 125 MCG TAB PO SCH (05:42)
[2018-05-24] MEDS: Polyethylene Glycol 3350 17 GM Packet PO SCH (08:08)
[2018-05-24] MEDS: Insulin NPH/Reg Insulin Hm 300 UNITS/3 ML VIAL SC SCH ×2 (08:09→16:27)
[2018-05-24] MEDS: Doxepin HCl 25 MG CAP PO SCH ×2 (08:12→20:17)
[2018-05-24] MEDS: Ferrous Sulfate 325 MG TAB PO SCH (08:13)
[2018-05-24] MEDS: Amlodipine 5 MG TAB PO SCH (08:13)
[2018-05-24] MEDS: Metoprolol Tartrate 50 MG TAB PO SCH ×2 (08:13→20:17)
[2018-05-24] MEDS: Penicillin V Potassium 250 MG TAB PO SCH ×2 (08:13→21:36)
[2018-05-24] MEDS: Bisacodyl 5 MG TAB PO PRN (08:13)
[2018-05-24] MEDS: Gabapentin 300 MG CAP PO SCH ×2 (08:13→20:18)
[2018-05-24] MEDS: Famotidine 20 MG TAB PO SCH ×2 (08:15→20:17)
[2018-05-24] MEDS: Nystatin Powder 15 GM BOT TOP SCH ×2 (08:15→20:18)
[2018-05-24] MEDS: Betamethasone Val 0.1% Lotion 60 ML BOT TOP SCH ×2 (08:22→20:18)
--- NOTE | 2018-05-24 14:11 | RAD ---
AP VIEW OF THE CHEST: INDICATION: Shortness of breath. COMPARISON: MRI study of 04/28/18. FINDINGS: There are smaller pleural effusions which are new from the comparison exam. There is a tiny left ple ural effusion. This is also new. There is cardiomegaly with pulmonary vascular congestion which is new. No pneumothorax is evident. IMPRESSION: Findings of CHF as above. POS: [facility]
[2018-05-24] MEDS ORDERED: Furosemide 40 MG TAB PO SCH (16:30)
[2018-05-25] MEDS: HYDROcodone/Acetaminophen 10/325 mg Tablet PO PRN ×6 (00:26→21:23)
[2018-05-25] MEDS: hydrOXYzine 25 MG TAB PO PRN ×5 (00:27→21:23)
--- NOTE | 2018-05-25 00:30 | PRG ---
DATE OF SERVICE: 05/24/2018 SUBJECTIVE: The patient states that she had significant dyspnea today while during therapy and subse quently was evaluated with a chest x-ray and EKG. She also states that her rash is improving, althou gh she denies that she is getting the betamethasone cream. OBJECTIVE: GENERAL: Shows that her rash is markedly improved with decreased excoriations and decreased lesions, although still persistent. VITAL SIGNS: Temperature 147/65, O2 sat is 92% on 2 liters, respirations are 20, pulse 70, afebrile. Intake and output did show she gained 30 pounds since admission. SKIN AND EXTREMITIES: Show persistent edema. IMAGING DATA: Chest x-ray did show cardiomegaly and increased pleural effusion and pulmonary congest ion. EKG showed sinus tachycardia with some sinus bradycardia with occasional PVCs. LABORATORY DATA: Renal function shows most recent creatinine 1.37, GFR 37. Chemistries also showed that Accu-Cheks still uncontrolled secondary to noncompliance, but are greatly improved ranging from 89-257. Lungs show decreased breath sounds in the bases with a few but no rales or rhonchi. CARDIAC: Shows regular rhythm. ABDOMEN: Obese and nontender. SKIN AND EXTREMITIES: Show increased edema with no erythema. SKIN and extremities do show rash. Persistent, but decreased excoriation. ASSESSMENT: 1. Resolving neurodermatitis, possibly due to psoriasiform dermatitis on betamethasone. 2. Increased congestive heart failure with pulmonary edema and increasing peripheral edema and incre asing weight and will start on furosemide. 3. Stable chronic kidney disease stage 3 and will monitor closely with diuresis. 4. Poorly controlled diabetes, improving here in the hospital. 5. Deconditioning limited by congestive heart failure. PLAN: Increase Lasix to 40 mg twice daily. Repeat basic metabolic profile, BNP in the a.m. Continu e PT, OT. Continue to monitor daily weight.
[2018-05-25] MEDS: Levothyroxine Sodium 125 MCG TAB PO SCH (04:42)
[2018-05-25 07:45] LABS: Anion Gap 13 mmol/L (10-20); BUN (Urea Nitrogen) 31 mg/dL (9.8-20.1); Calc. Creatinine Clearance 63 mL/min (70-130); Calcium 8.8 mg/dL (7.8-10.44); Carbon Dioxide 29 mmol/L (23-31); Chloride 101 mmol/L (98-107); Estimated GFR-MDRD 32; Glucose 163 mg/dL (83-110); Potassium 5.5 mmol/L (3.5-5.1); Sodium 137 mmol/L (136-145)
[2018-05-25] MEDS: Polyethylene Glycol 3350 17 GM Packet PO SCH (09:05)
[2018-05-25] MEDS: Famotidine 20 MG TAB PO SCH ×2 (09:06→21:25)
[2018-05-25] MEDS: Penicillin V Potassium 250 MG TAB PO SCH ×2 (09:06→21:25)
[2018-05-25] MEDS: Furosemide 40 MG TAB PO SCH ×2 (09:06→13:53)
[2018-05-25] MEDS: Doxepin HCl 25 MG CAP PO SCH ×2 (09:06→21:25)
[2018-05-25] MEDS: Amlodipine 5 MG TAB PO SCH (09:06)
[2018-05-25] MEDS: Metoprolol Tartrate 50 MG TAB PO SCH ×2 (09:06→21:23)
[2018-05-25] MEDS: Gabapentin 300 MG CAP PO SCH ×2 (09:06→21:23)
[2018-05-25] MEDS: Ferrous Sulfate 325 MG TAB PO SCH (09:06)
[2018-05-25] MEDS: Betamethasone Val 0.1% Lotion 60 ML BOT TOP SCH ×2 (09:07→21:27)
[2018-05-25] MEDS: Nystatin Powder 15 GM BOT TOP SCH ×2 (09:08→21:25)
[2018-05-25] MEDS: Oxymetazoline HCl 0.05% ( 15 ML ) NASAL PRN (09:08)
[2018-05-25] MEDS: Insulin NPH/Reg Insulin Hm 300 UNITS/3 ML VIAL SC SCH ×2 (09:13→16:47)
[2018-05-25] MEDS: Ondansetron ODT 4 MG TAB PO PRN (09:16)
[2018-05-25] MEDS: Bisacodyl 5 MG TAB PO PRN (17:50)
[2018-05-26] MEDS: HYDROcodone/Acetaminophen 10/325 mg Tablet PO PRN ×6 (01:36→22:17)
[2018-05-26] MEDS: hydrOXYzine 25 MG TAB PO PRN ×4 (01:36→22:18)
[2018-05-26] MEDS: Levothyroxine Sodium 125 MCG TAB PO SCH (05:38)
[2018-05-26 07:59] LABS: Anion Gap 13 mmol/L (10-20); BUN (Urea Nitrogen) 34 mg/dL (9.8-20.1); Calc. Creatinine Clearance 61 mL/min (70-130); Calcium 8.8 mg/dL (7.8-10.44); Carbon Dioxide 29 mmol/L (23-31); Chloride 102 mmol/L (98-107); Estimated GFR-MDRD 31; Glucose 139 mg/dL (83-110); Potassium 5.8 mmol/L (3.5-5.1); Sodium 138 mmol/L (136-145)
[2018-05-26] MEDS ORDERED: Magnesium Citrate 300 ML BOT PO SCH (08:00)
[2018-05-26] MEDS: Famotidine 20 MG TAB PO SCH ×2 (08:57→21:08)
[2018-05-26] MEDS: Gabapentin 300 MG CAP PO SCH ×2 (08:57→21:08)
[2018-05-26] MEDS: Metoprolol Tartrate 50 MG TAB PO SCH ×2 (08:57→21:08)
[2018-05-26] MEDS: Furosemide 40 MG TAB PO SCH ×2 (08:57→14:47)
[2018-05-26] MEDS: Amlodipine 5 MG TAB PO SCH (08:57)
[2018-05-26] MEDS: Penicillin V Potassium 250 MG TAB PO SCH ×2 (08:57→21:08)
[2018-05-26] MEDS: Ferrous Sulfate 325 MG TAB PO SCH (08:59)
[2018-05-26] MEDS: Doxepin HCl 25 MG CAP PO SCH ×2 (08:59→21:08)
[2018-05-26] MEDS: Polyethylene Glycol 3350 17 GM Packet PO SCH (09:01)
[2018-05-26] MEDS: Betamethasone Val 0.1% Lotion 60 ML BOT TOP SCH ×2 (09:05→21:10)
[2018-05-26] MEDS: Nystatin Powder 15 GM BOT TOP SCH ×2 (09:05→21:10)
[2018-05-26] MEDS: Insulin NPH/Reg Insulin Hm 300 UNITS/3 ML VIAL SC SCH ×2 (09:07→17:38)
--- NOTE | 2018-05-26 13:43 | PRG ---
DATE OF SERVICE: 05/25/2018 SUBJECTIVE: The patient is sitting up in the chair. States that she is feeling slightly better with diuresis and weight loss, but still is having abdominal distention and is complaining of some shortn ess of breath. She is eating well and is limiting her fluid intake. OBJECTIVE: VITAL SIGNS: Shows her temperature 96.7, pulse 61, respirations 18, O2 sat 99% on 2 liters, blood pr essure is 118/80. Weight is down to 290 pounds from 301 pounds the previous day. LUNGS: Clear. Decreased breath sounds in the bases. CARDIAC: Shows regular rhythm. ABDOMEN: Obese and nontender. SKIN AND EXTREMITIES: Show lymphedema appears to be decreased. LABORATORY DATA: Shows Accu-Cheks range from 114-197. Sodium 137, potassium 5.5, chloride 101, bica rbonate 29, BUN 31, creatinine 1.56. ASSESSMENT: 1. Resolving edema, morbid obesity, Pickwickian syndrome, diastolic heart failure. 2. Worsening hyperkalemia and chronic kidney disease. 3. Monitor closely. 4. Type 2 diabetes, controlled . 5. Severe deconditioning with minimal improvement in this patient is walking 70 feet, 50 feet, 40 fe et with a walker. PLAN: Continue PT, OT. Continue supplemental oxygen. Continue diuresis with furosemide 40 twice [place]i[facility]. Monitor renal function daily. Monitor daily weights. We will also get echocardiogram to evalu ate for possible worsening diastolic or systolic heart failure.
--- NOTE | 2018-05-26 17:24 | PRG ---
DATE OF SERVICE: 05/26/2018 SUBJECTIVE: The patient is sitting up in a chair sleeping. States she cannot lie down to sleep, but she is cooperating with therapy and walking. Has not had a bowel movement and states that she has t aken mag citrate with no response today. She has been urinating somewhat, although nurses state that it is only 650 mL. Her weight, however, has decreased another pound but not a great deal. Her laboratory shows her Accu -Cheks are stable from 98-197. Sodium 138, potassium 5.8, chloride 102, bicarbonate 29, BUN 34, crea tinine 1.63, glucose 139. ASSESSMENT: 1. Persistent morbid obesity with new problem recurrent constipation. We will give another dose of magnesium citrate tomorrow if no response to dose given this morning. 2. Shortness of breath with normal enzymes and EKG only showing sinus rhythm, but will get echo with results pending. 3. Type 2 diabetes with improved control to goal. 4. Severe deconditioning, but improving slowly. 5. Morbid obesity and probable Pickwickian syndrome and possible pulmonary hypertension. Await resu lts of echo and continue on supplemental oxygen.
--- NOTE | 2018-05-26 21:10 | RAD ---
ABDOMEN ONE VIEW: 05/26/18 HISTORY: Abdominal pain. FINDINGS: A very large amount of stool is apparent throughout the colon and rectum. Small bowel gas pattern is nonspecific. Hemidiaphragms are not included. No radiopaque foreign bodies are evident. IMPRESSION: Constipation. POS: [facility]
[2018-05-26] MEDS ORDERED: Bisacodyl 10 MG SUPP PR SCH (22:15)
[2018-05-27] MEDS: hydrOXYzine 25 MG TAB PO PRN ×4 (03:33→22:34)
[2018-05-27] MEDS: HYDROcodone/Acetaminophen 10/325 mg Tablet PO PRN ×4 (03:33→20:24)
[2018-05-27] MEDS: Levothyroxine Sodium 125 MCG TAB PO SCH (05:20)
[2018-05-27 05:39] LABS: Anion Gap 13 mmol/L (10-20); BUN (Urea Nitrogen) 33 mg/dL (9.8-20.1); Calc. Creatinine Clearance 66 mL/min (70-130); Calcium 8.7 mg/dL (7.8-10.44); Carbon Dioxide 30 mmol/L (23-31); Chloride 101 mmol/L (98-107); Estimated GFR-MDRD 34; Glucose 99 mg/dL (83-110); Potassium 5.5 mmol/L (3.5-5.1); Sodium 138 mmol/L (136-145)
[2018-05-27] MEDS ORDERED: Magnesium Citrate 300 ML BOT PO SCH (08:00)
[2018-05-27] MEDS: Betamethasone Val 0.1% Lotion 60 ML BOT TOP SCH ×2 (08:49→20:28)
[2018-05-27] MEDS: Nystatin Powder 15 GM BOT TOP SCH ×2 (08:49→20:27)
[2018-05-27] MEDS: Penicillin V Potassium 250 MG TAB PO SCH ×2 (08:56→20:24)
[2018-05-27] MEDS: Polyethylene Glycol 3350 17 GM Packet PO SCH (08:56)
[2018-05-27] MEDS: Famotidine 20 MG TAB PO SCH ×2 (08:57→20:24)
[2018-05-27] MEDS: Gabapentin 300 MG CAP PO SCH ×2 (08:57→20:24)
[2018-05-27] MEDS: Doxepin HCl 25 MG CAP PO SCH ×2 (08:57→20:24)
[2018-05-27] MEDS: Amlodipine 5 MG TAB PO SCH (08:57)
[2018-05-27] MEDS: Ferrous Sulfate 325 MG TAB PO SCH (08:57)
[2018-05-27] MEDS: Furosemide 40 MG TAB PO SCH ×2 (08:57→14:25)
[2018-05-27] MEDS: Metoprolol Tartrate 50 MG TAB PO SCH ×2 (09:00→20:24)
[2018-05-27] MEDS: Insulin NPH/Reg Insulin Hm 300 UNITS/3 ML VIAL SC SCH ×2 (09:06→17:26)
[2018-05-27] MEDS ORDERED: Fleet Enema 133 ML BOT PR SCH (13:30)
[2018-05-28] MEDS: hydrOXYzine 25 MG TAB PO PRN ×3 (04:27→21:01)
[2018-05-28] MEDS: HYDROcodone/Acetaminophen 10/325 mg Tablet PO PRN ×4 (04:27→21:00)
[2018-05-28 05:21] LABS: #Basophils 0.1 thou/uL (0.0-0.2); #Eosinphils 0.4 thou/uL (0.0-0.7); #Lymphocytes 1.3 thou/uL (1.20-3.40); #Monocytes 0.7 thou/uL (0.11-0.59); #Neutrophils 4.2 thou/uL (1.40-6.50); %Eosinophils 5.8 % (0.0-10.0); %Lymphocytes 19.8 % (21.0-51.0); %Monocytes 10.2 % (0.0-10.0); %Neutrophils 63.1 % (42.0-75.0); Hemoglobin 7.8 g/dL (12.0-16.0); Mean Corpuscular HGB CONC 30.6 g/dL (32.0-36.0); Mean Corpuscular Hemoglobin 27.6 pg (27.0-31.0); Mean Platelet Volume 6.4 fL (7.4-10.4); Platelet Count 230 thou/uL (130-400); RBC Distribution Width 18.2 % (11.5-14.5); Red Blood Cell (RBC) Count 2.81 mill/uL (4.20-5.40); White Blood Cell (WBC) Count 6.7 thou/uL (4.8-10.8)
[2018-05-28] MEDS: Levothyroxine Sodium 125 MCG TAB PO SCH (05:32)
[2018-05-28 05:39] LABS: ALT (SGPT) 12 U/L (8-55); AST (SGOT) 17 U/L (5-34); Albumin 2.9 g/dL (3.4-4.8); Alkaline Phosphatase 115 U/L (40-150); Anion Gap 11 mmol/L (10-20); BUN (Urea Nitrogen) 32 mg/dL (9.8-20.1); Bilirubin, Total 0.6 mg/dL (0.2-1.2); Calc. Creatinine Clearance 63 mL/min (70-130); Calcium 8.7 mg/dL (7.8-10.44); Carbon Dioxide 32 mmol/L (23-31); Chloride 99 mmol/L (98-107); Estimated GFR-MDRD 32; Globulin 4.6 g/dL (2.4-3.5); Glucose 183 mg/dL (83-110); Potassium 5.2 mmol/L (3.5-5.1); Protein, Total 7.5 g/dL (6.0-8.3); Sodium 137 mmol/L (136-145)
[2018-05-28] MEDS: Ferrous Sulfate 325 MG TAB PO SCH (08:29)
[2018-05-28] MEDS: Metoprolol Tartrate 50 MG TAB PO SCH ×2 (08:29→21:02)
[2018-05-28] MEDS: Amlodipine 5 MG TAB PO SCH (08:30)
[2018-05-28] MEDS: Doxepin HCl 25 MG CAP PO SCH ×2 (08:30→21:01)
[2018-05-28] MEDS: Furosemide 40 MG TAB PO SCH ×2 (08:30→15:02)
[2018-05-28] MEDS: Gabapentin 300 MG CAP PO SCH ×2 (08:30→20:59)
[2018-05-28] MEDS: Polyethylene Glycol 3350 17 GM Packet PO SCH (08:31)
[2018-05-28] MEDS: Betamethasone Val 0.1% Lotion 60 ML BOT TOP SCH ×2 (08:31→21:08)
[2018-05-28] MEDS: Nystatin Powder 15 GM BOT TOP SCH ×2 (08:31→21:17)
[2018-05-28] MEDS: Oxymetazoline HCl 0.05% ( 15 ML ) NASAL PRN (08:31)
[2018-05-28] MEDS: Penicillin V Potassium 250 MG TAB PO SCH ×2 (08:31→20:59)
[2018-05-28] MEDS: Famotidine 20 MG TAB PO SCH ×2 (08:31→21:00)
[2018-05-28] MEDS: Insulin NPH/Reg Insulin Hm 300 UNITS/3 ML VIAL SC SCH ×2 (08:32→16:57)
--- NOTE | 2018-05-28 10:43 | RAD ---
ABDOMEN 1 VIEW: HISTORY: Abdominal pain. Constipation. COMPARISON: 05/26/18. FINDINGS: A large amount of stool is again demonstrated throughout the colon and rectum. On the current study, some differential air fluid levels are scattered about the small and large bowel. Some small bowel air fluid levels are differential. Hemidiaphragms are not included on this exam. IMPRESSION: Differential air fluid levels in the mildly distended small bowel could be a sign of bowel obstructio n. The large amount of stool and fluid throughout the colon suggests that if there is an obstruction , it would be at the distal colon. Degree of abnormality has progressed since the previous study 2 d ays ago. POS: [facility]
[2018-05-28] MEDS ORDERED: Lubiprostone 24 MCG CAP PO SCH ×2 (16:15→21:00)
--- NOTE | 2018-05-28 16:48 | PRG ---
DATE OF SERVICE: 05/27/2018 SUBJECTIVE: The patient states she has had 2 large bowel movements and is eating better with decreas ed abdominal pain and nausea and is able to do her therapy, but still does not feel well. OBJECTIVE: VITAL SIGNS: Show her temperature is 98.2, pulse 78, respirations 20, O2 sats 87% on nasal cannula, blood pressure 150/66. LUNGS: Clear. ABDOMEN: Soft, distended, nontender. SKIN AND EXTREMITIES: Show lymphedema, decreased excoriation, decreased erythema. Physical therapy states that patient unable to have treatment secondary to constipation, laxative and enema. ASSESSMENT: The patient is a 77-year-old white female with a history of morbid obesity and chronic p ain, here for severe deconditioning, is on hydrocodone routinely and has been cooperating with therap y, but has cooperating with therapy occasionally, but has developed recurrent severe constipation whi ch has responded somewhat to enemas and magnesium citrate, but is still distended. Therefore, we jennifer l repeat abdominal x-ray tomorrow. We will stress to patient need to decrease the dose of her narcot ics, this is possibly causing her problem.
--- NOTE | 2018-05-28 16:55 | PRG ---
DATE OF SERVICE: 05/28/2018 SUBJECTIVE: The patient feels well and has no dyspnea at rest, but is still having inability to have a bowel movement. OBJECTIVE: Shows abdominal x-ray shows large amount of stool in the rectum and colon. VITAL SIGNS: Show O2 sats 94% on 2 liters, pulse 73, afebrile, blood pressure 126/56. ABDOMEN: Distended but not firm. EXTREMITIES: Show persistent lymphedema with no erythema or warmth. LUNGS: Clear. CARDIAC: Shows regular rhythm. SKIN: Fading rash. LABORATORY DATA: Laboratory show white count 6700, hematocrit 25, hemoglobin 7.8. Sodium 137, potas sium 5.2, chloride 99, bicarbonate 32, BUN 32, creatinine 1.57. Accu-Cheks 176-234. Albumin at 2.9. ASSESSMENT: 1. Persistent severe constipation secondary to narcotic use. We will start on Amitiza 24 mg daily a nd attempt to wean narcotics. 2. Pickwickian syndrome with hypoxemia at rest and will attempt to obtain liters of oxygen as an out patient from insurance. 3. Severe deconditioning with slight improvement, did work with therapy today. 4. Type 2 diabetes with improved control to goal. 5. Resolving cellulitis and lymphedema with penicillin. PLAN: 1. Amitiza 24 mg daily. 2. Stress to patient need to decrease amount of narcotics. 3. Continue PT/OT. 4. Arrange for discharge in 2 days. His insurance is denying further stay.
[2018-05-29] MEDS: HYDROcodone/Acetaminophen 10/325 mg Tablet PO PRN ×4 (02:37→21:31)
[2018-05-29] MEDS: hydrOXYzine 25 MG TAB PO PRN ×4 (02:40→21:31)
[2018-05-29] MEDS: Levothyroxine Sodium 125 MCG TAB PO SCH (06:13)
[2018-05-29] MEDS: Ondansetron ODT 4 MG TAB PO PRN (06:43)
[2018-05-29] MEDS ORDERED: Lubiprostone 24 MCG CAP PO SCH (08:00)
[2018-05-29] MEDS: Gabapentin 300 MG CAP PO SCH ×2 (08:09→21:31)
[2018-05-29] MEDS: Polyethylene Glycol 3350 17 GM Packet PO SCH (08:09)
[2018-05-29] MEDS: Famotidine 20 MG TAB PO SCH ×2 (08:10→21:31)
[2018-05-29] MEDS: Amlodipine 5 MG TAB PO SCH (08:10)
[2018-05-29] MEDS: Metoprolol Tartrate 50 MG TAB PO SCH ×2 (08:10→21:31)
[2018-05-29] MEDS: Doxepin HCl 25 MG CAP PO SCH ×2 (08:10→21:31)
[2018-05-29] MEDS: Penicillin V Potassium 250 MG TAB PO SCH ×2 (08:10→21:31)
[2018-05-29] MEDS: Furosemide 40 MG TAB PO SCH ×2 (08:12→14:43)
[2018-05-29] MEDS: Ferrous Sulfate 325 MG TAB PO SCH (08:12)
[2018-05-29] MEDS: Nystatin Powder 15 GM BOT TOP SCH ×2 (08:13→21:32)
[2018-05-29] MEDS: Betamethasone Val 0.1% Lotion 60 ML BOT TOP SCH ×2 (08:18→21:32)
[2018-05-29] MEDS: Insulin NPH/Reg Insulin Hm 300 UNITS/3 ML VIAL SC SCH ×2 (08:30→17:20)
--- NOTE | 2018-05-29 19:25 | PRG ---
DATE OF SERVICE: 05/29/2018 SUBJECTIVE: The patient feels better, sitting up in the chair, resting. Has had large bowel movemen t today did not feel a distended, had not had therapy today because of the holidays, not have any par ticular shortness of breath at rest. She is asking for more water. OBJECTIVE: VITAL SIGNS: Shows her intake and output shows 2200 in, 800 out. She has lost 6 pounds today with t he fluid restriction and large bowel movement. LUNGS: Clear. CARDIAC: Regular rhythm. SKIN AND EXTREMITIES: Shows persistent lymphedema, but decreasing tenderness, erythema. Laboratories not been done today. Accu-Cheks have been improved, ranging from 79-176. ASSESSMENT: 1. Resolving constipation secondary to narcotic use on Amitiza. 2. Improving peripheral edema. The patient with morbid obesity and normal echocardiogram, most like ly due to diastolic heart failure, lymphedema. 3. Persistent hypoxemia, most likely due to morbid obesity and Pickwickian syndrome. We will attemp t to wean. 4. Deconditioning, still inability to maintain ADLs and will attempt more therapy prior to discharge . 5. Cellulitis of the lymphedema, resolved on prophylactic antibiotic, penicillin. PLAN: Attempt to wean oxygen down to 1 liter. Continue Amitiza 24 daily, discontinue nocturnal 70/3 0, Accu-Cheks improved. Continue penicillin for cellulitis prevention. Continue hydrocodone as need ed for chronic back pain. Continue furosemide 40 twice daily and fluid restriction and monitor weigh t loss and edema and renal function.
[2018-05-29] MEDS: Lubiprostone 24 MCG CAP PO SCH (21:30)
[2018-05-29] MEDS ORDERED: Melatonin 3 MG TAB PO SCH (23:30)
[2018-05-30] MEDS: HYDROcodone/Acetaminophen 10/325 mg Tablet PO PRN ×5 (02:08→23:00)
[2018-05-30] MEDS: hydrOXYzine 25 MG TAB PO PRN ×4 (02:08→21:08)
[2018-05-30] MEDS: Ondansetron ODT 4 MG TAB PO PRN ×2 (02:57→23:19)
[2018-05-30] MEDS: Levothyroxine Sodium 125 MCG TAB PO SCH (06:24)
[2018-05-30] MEDS: Penicillin V Potassium 250 MG TAB PO SCH ×2 (08:13→21:09)
[2018-05-30] MEDS: Ferrous Sulfate 325 MG TAB PO SCH (08:13)
[2018-05-30] MEDS: Gabapentin 300 MG CAP PO SCH ×2 (08:13→21:09)
[2018-05-30] MEDS: Doxepin HCl 25 MG CAP PO SCH ×2 (08:13→21:07)
[2018-05-30] MEDS: Famotidine 20 MG TAB PO SCH ×2 (08:13→21:09)
[2018-05-30] MEDS: Metoprolol Tartrate 50 MG TAB PO SCH ×2 (08:13→21:07)
[2018-05-30] MEDS: Amlodipine 5 MG TAB PO SCH (08:14)
[2018-05-30] MEDS: Furosemide 40 MG TAB PO SCH ×2 (08:14→13:54)
[2018-05-30] MEDS: Insulin NPH/Reg Insulin Hm 300 UNITS/3 ML VIAL SC SCH (08:15)
[2018-05-30] MEDS: Betamethasone Val 0.1% Lotion 60 ML BOT TOP SCH ×2 (08:15→21:06)
[2018-05-30] MEDS: Nystatin Powder 15 GM BOT TOP SCH ×2 (08:18→21:07)
[2018-05-30] MEDS: Polyethylene Glycol 3350 17 GM Packet PO SCH (08:19)
[2018-05-30] MEDS: Bisacodyl 5 MG TAB PO PRN (12:46)
[2018-05-30] MEDS: Lubiprostone 24 MCG CAP PO SCH (21:08)
[2018-05-30] MEDS: Melatonin 3 MG TAB PO PRN (21:08)
[2018-05-31] MEDS: hydrOXYzine 25 MG TAB PO PRN ×4 (05:08→20:33)
[2018-05-31] MEDS: Levothyroxine Sodium 125 MCG TAB PO SCH (05:09)
[2018-05-31] MEDS: HYDROcodone/Acetaminophen 10/325 mg Tablet PO PRN ×4 (05:09→20:56)
[2018-05-31] MEDS: Polyethylene Glycol 3350 17 GM Packet PO SCH (08:59)
[2018-05-31] MEDS: Gabapentin 300 MG CAP PO SCH ×2 (08:59→20:34)
[2018-05-31] MEDS: Ferrous Sulfate 325 MG TAB PO SCH (08:59)
[2018-05-31] MEDS: Penicillin V Potassium 250 MG TAB PO SCH ×2 (09:00→20:34)
[2018-05-31] MEDS: Amlodipine 5 MG TAB PO SCH (09:00)
[2018-05-31] MEDS: Furosemide 40 MG TAB PO SCH ×2 (09:00→13:10)
[2018-05-31] MEDS: Famotidine 20 MG TAB PO SCH ×2 (09:01→20:34)
[2018-05-31] MEDS: Metoprolol Tartrate 50 MG TAB PO SCH ×2 (09:01→20:32)
[2018-05-31] MEDS: Nystatin Powder 15 GM BOT TOP SCH ×2 (09:02→20:34)
[2018-05-31] MEDS: Betamethasone Val 0.1% Lotion 60 ML BOT TOP SCH ×2 (09:02→20:34)
[2018-05-31] MEDS: Doxepin HCl 25 MG CAP PO SCH ×2 (09:02→20:33)
[2018-05-31] MEDS: Insulin NPH/Reg Insulin Hm 300 UNITS/3 ML VIAL SC SCH (09:03)
--- NOTE | 2018-05-31 18:01 | PRG ---
DATE OF SERVICE: 05/31/2018 SUBJECTIVE: 1. The patient is sitting up in a chair and watching TV. No complaints. States she has not had a b owel movement today, but is having no abdominal pain and was told to continue her Amitiza. 2. She has also been compliant to her diet and appeared to have her Accu-Cheks improved control. 3. She also did not work with therapy, but is anticipating discharge home tomorrow. OBJECTIVE: VITAL SIGNS: Shows her blood pressure is up to 175/72, temperature is 98, pulse 68, respirations 22, O2 sats 93% on 1 liter. LUNGS: Show decreased breath sounds in the bases. CARDIAC: Shows regular rhythm. ABDOMEN: Obese and nontender. SKIN AND EXTREMITIES: Show chronic lymphedema with healing excoriations. ASSESSMENT: 1. Lymphedema with resolving cellulitis on prophylactic penicillin. 2. Morbid obesity would most likely hypoxemia from Pickwickian syndrome, oxygen at home. 3. Recurrent constipation secondary to narcotic abuse on Amitiza. Continue Amitiza in an attempt to wean off hydrocodone. 4. Type 2 diabetes with improved control with compliance to diet in the hospital. 5. Diastolic heart failure, stable. PLAN: I discussed discharge planning with nurses and insurance tomorrow on oxygen and hospital medic ations.
--- NOTE | 2018-05-31 18:20 | PRG ---
DATE OF SERVICE: 05/30/2018 SUBJECTIVE: The patient sitting up in the chair, resting well with no complaints of shortness of jasmyn ath, has had good bowel movement today x2. No abdominal pain, no cough or wheezing. No nausea or vo miting. No further itching or scratching of her rash. OBJECTIVE: VITAL SIGNS: Shows her temperature is 98, pulse 70, respirations 20, O2 sats 94% on 1 liter, blood p ressure 137/65. LUNGS: Clear. CARDIAC: Showed regular rhythm. ABDOMEN: Obese, nontender. SKIN AND EXTREMITIES: Show fading rash, chronic lymphedema. ASSESSMENT: 1. Improved constipation secondary to narcotic abuse on Amitiza. 2. Improved peripheral edema with chronic lymphedema, normal echocardiogram. 3. Persistent hypoxemia secondary to probable Pickwickian syndrome and attempting to obtain oxygen a s an outpatient. 4. Deconditioning with still inability to maintain ADLs and being discharged home by insurance. 5. Cellulitis of the lymphedema, controlled on oral penicillin. PLAN: 1. Attempt to wean oxygen down to failed and therefore we will attempt to obtain oxygen at home. 2. Continue Amitiza 24 daily. 3. Continue penicillin for cellulitis . 4. Continue hydrocodone as needed for back pain. 5. Continue furosemide 40 twice daily and fluid restriction.
[2018-05-31] MEDS: Melatonin 3 MG TAB PO PRN (20:33)
[2018-05-31] MEDS: Lubiprostone 24 MCG CAP PO SCH (20:34)
[2018-06-01] MEDS: hydrOXYzine 25 MG TAB PO PRN ×4 (01:32→21:14)
[2018-06-01] MEDS: HYDROcodone/Acetaminophen 10/325 mg Tablet PO PRN ×5 (01:32→21:15)
[2018-06-01] MEDS: Levothyroxine Sodium 125 MCG TAB PO SCH (05:39)
[2018-06-01] MEDS: Famotidine 20 MG TAB PO SCH ×2 (08:13→21:14)
[2018-06-01] MEDS: Furosemide 40 MG TAB PO SCH ×2 (08:13→13:08)
[2018-06-01] MEDS: Amlodipine 5 MG TAB PO SCH (08:13)
[2018-06-01] MEDS: Penicillin V Potassium 250 MG TAB PO SCH ×2 (08:13→21:14)
[2018-06-01] MEDS: Polyethylene Glycol 3350 17 GM Packet PO SCH (08:13)
[2018-06-01] MEDS: Doxepin HCl 25 MG CAP PO SCH ×2 (08:14→21:14)
[2018-06-01] MEDS: Ferrous Sulfate 325 MG TAB PO SCH (08:14)
[2018-06-01] MEDS: Insulin NPH/Reg Insulin Hm 300 UNITS/3 ML VIAL SC SCH (08:14)
[2018-06-01] MEDS: Metoprolol Tartrate 50 MG TAB PO SCH ×2 (08:14→21:15)
[2018-06-01] MEDS: Gabapentin 300 MG CAP PO SCH ×2 (08:14→21:15)
[2018-06-01] MEDS: Betamethasone Val 0.1% Lotion 60 ML BOT TOP SCH ×2 (08:15→21:19)
[2018-06-01] MEDS: Nystatin Powder 15 GM BOT TOP SCH ×2 (08:15→21:19)
--- NOTE | 2018-06-01 19:23 | PRG ---
DATE OF SERVICE: 06/01/2018 SUBJECTIVE: The patient feels well, sitting up in a chair, has been released from occupational [facility], but has not had her oxygen approved and will be kept for 2 more days on PT and then discharge. S he is compliant to fluid restriction, feeling much better with decreased dyspnea, abdominal pain. OBJECTIVE: VITAL SIGNS: Temperature is 97, pulse 75, respirations 20, O2 sats 95% on 2 liters. ABDOMEN: Obese and nontender. SKIN AND EXTREMITIES: Show lymphedema with decreasing erythema and excoriation. LUNGS: Show decreased breath sounds in the bases. NEUROLOGICAL: Intact. ASSESSMENT: 1. Stable lymphedema with resolved cellulitis. 2. Type 2 diabetes with improved control. 3. Recurrent constipation, improved on Amitiza. 4. Diastolic heart failure, stable. PLAN: 1. Arrange for home O2. 2. Repeat CBC and comp metabolic profile in the a.m. 3. Continue PT. 4. Continue fluid restriction and diuresis.
[2018-06-01] MEDS: Bisacodyl 5 MG TAB PO PRN (21:14)
[2018-06-01] MEDS: Melatonin 3 MG TAB PO PRN (21:15)
[2018-06-01] MEDS: Lubiprostone 24 MCG CAP PO SCH (21:20)
[2018-06-02] MEDS: Ondansetron ODT 4 MG TAB PO PRN (02:25)
[2018-06-02] MEDS: HYDROcodone/Acetaminophen 10/325 mg Tablet PO PRN ×3 (02:25→20:02)
[2018-06-02 06:06] LABS: ALT (SGPT) 11 U/L (8-55); AST (SGOT) 16 U/L (5-34); Albumin 2.9 g/dL (3.4-4.8); Alkaline Phosphatase 115 U/L (40-150); Anion Gap 12 mmol/L (10-20); BUN (Urea Nitrogen) 26 mg/dL (9.8-20.1); Bilirubin, Total 0.6 mg/dL (0.2-1.2); Calc. Creatinine Clearance 66 mL/min (70-130); Calcium 9.2 mg/dL (7.8-10.44); Carbon Dioxide 32 mmol/L (23-31); Chloride 97 mmol/L (98-107); Estimated GFR-MDRD 34; Globulin 4.7 g/dL (2.4-3.5); Glucose 91 mg/dL (83-110); Potassium 4.6 mmol/L (3.5-5.1); Protein, Total 7.6 g/dL (6.0-8.3); Sodium 136 mmol/L (136-145)
[2018-06-02 06:16] LABS: #Basophils 0.1 thou/uL (0.0-0.2); #Eosinphils 0.4 thou/uL (0.0-0.7); #Lymphocytes 1.2 thou/uL (1.20-3.40); #Monocytes 0.6 thou/uL (0.11-0.59); #Neutrophils 2.6 thou/uL (1.40-6.50); %Eosinophils 9.2 % (0.0-10.0); %Lymphocytes 24.1 % (21.0-51.0); %Monocytes 12.6 % (0.0-10.0); %Neutrophils 52.2 % (42.0-75.0); Hemoglobin 7.8 g/dL (12.0-16.0); Hypochromia SLIGHT = 6-15 cells (100X) (0-5/hpf); MDiff Complete? YES; Mean Corpuscular HGB CONC 30.3 g/dL (32.0-36.0); Mean Corpuscular Hemoglobin 27.4 pg (27.0-31.0); Mean Corpuscular Volume 90.6 fL (78.0-98.0); Mean Platelet Volume 5.5 fL (7.4-10.4); PLT Morphology Comment Appears Adequate; Platelet Count 216 thou/uL (130-400); RBC Distribution Width 19.1 % (11.5-14.5); Red Blood Cell (RBC) Count 2.86 mill/uL (4.20-5.40); Small Platelets SLIGHT; White Blood Cell (WBC) Count 4.9 thou/uL (4.8-10.8)
[2018-06-02] MEDS: Levothyroxine Sodium 125 MCG TAB PO SCH (06:22)
[2018-06-02] MEDS: Nystatin Powder 15 GM BOT TOP SCH ×2 (08:33→20:11)
[2018-06-02] MEDS: Betamethasone Val 0.1% Lotion 60 ML BOT TOP SCH ×2 (08:33→20:11)
[2018-06-02] MEDS: Polyethylene Glycol 3350 17 GM Packet PO SCH (08:34)
[2018-06-02] MEDS: Ferrous Sulfate 325 MG TAB PO SCH (08:34)
[2018-06-02] MEDS: Metoprolol Tartrate 50 MG TAB PO SCH ×2 (08:34→20:02)
[2018-06-02] MEDS: Doxepin HCl 25 MG CAP PO SCH ×2 (08:34→20:05)
[2018-06-02] MEDS: Gabapentin 300 MG CAP PO SCH ×2 (08:35→20:02)
[2018-06-02] MEDS: Penicillin V Potassium 250 MG TAB PO SCH ×2 (08:35→20:02)
[2018-06-02] MEDS: Amlodipine 5 MG TAB PO SCH (08:35)
[2018-06-02] MEDS: Furosemide 40 MG TAB PO SCH ×2 (08:35→14:41)
[2018-06-02] MEDS: Famotidine 20 MG TAB PO SCH ×2 (08:35→20:03)
[2018-06-02] MEDS: hydrOXYzine 25 MG TAB PO PRN ×2 (08:49→20:03)
[2018-06-02] MEDS: Insulin NPH/Reg Insulin Hm 300 UNITS/3 ML VIAL SC SCH (09:00)
--- NOTE | 2018-06-02 19:52 | PRG ---
DATE OF SERVICE: 06/02/2018 SUBJECTIVE: The patient is sleeping in bed, resting. Has cooperated somewhat with therapy today. OBJECTIVE: VITAL SIGNS: O2 sats 98%, pulse 67 on 2 liters. Blood pressure 163/74, afebrile. LABORATORY DATA: Show white count 4900, hematocrit 25, and hemoglobin 7.8. Sodium 136, potassium 4. 6, chloride 97, bicarbonate 32, BUN 26, and creatinine 1.49. Intake and output shows 2538 in and 950 out. ASSESSMENT: 1. Morbid obesity with persistent positive intake despite fluid restriction. 2. Severe deconditioning cooperating minimally with therapy. 3. Lymphedema with resolved cellulitis. 4. Type 2 diabetes, controlled to goal. 5. Recurrent constipation, resolved on Amitiza. 6. Diastolic heart failure, stable. PLAN: Continue PT, OT. Continue fluid restriction and diuresis. Continue Amitiza. Arrange for rola e O2.
[2018-06-02] MEDS: Melatonin 3 MG TAB PO PRN (20:02)
[2018-06-02] MEDS: Lubiprostone 24 MCG CAP PO SCH (20:03)
[2018-06-02] MEDS ORDERED: ALPRAZolam 0.25 MG TAB PO SCH (20:45)
[2018-06-03] MEDS: HYDROcodone/Acetaminophen 10/325 mg Tablet PO PRN ×2 (02:06→09:25)
[2018-06-03] MEDS: hydrOXYzine 25 MG TAB PO PRN (02:07)
[2018-06-03] MEDS: Levothyroxine Sodium 125 MCG TAB PO SCH (06:37)
[2018-06-03 06:43] VITALS: BMI 46.8
[2018-06-03 07:30] VITALS: BP 143/63
[2018-06-03] MEDS: Insulin NPH/Reg Insulin Hm 300 UNITS/3 ML VIAL SC SCH (09:22)
[2018-06-03] MEDS: Ferrous Sulfate 325 MG TAB PO SCH (09:23)
[2018-06-03] MEDS: Furosemide 40 MG TAB PO SCH (09:24)
[2018-06-03] MEDS: Doxepin HCl 25 MG CAP PO SCH (09:24)
[2018-06-03] MEDS: Famotidine 20 MG TAB PO SCH (09:24)
[2018-06-03] MEDS: Penicillin V Potassium 250 MG TAB PO SCH (09:24)
[2018-06-03] MEDS: Metoprolol Tartrate 50 MG TAB PO SCH (09:24)
[2018-06-03] MEDS: Gabapentin 300 MG CAP PO SCH (09:25)
[2018-06-03] MEDS: Amlodipine 5 MG TAB PO SCH (09:25)
[2018-06-03] MEDS: Nystatin Powder 15 GM BOT TOP SCH (09:26)
[2018-06-03] MEDS: Polyethylene Glycol 3350 17 GM Packet PO SCH (09:26)
[2018-06-03] MEDS: Betamethasone Val 0.1% Lotion 60 ML BOT TOP SCH (09:28)
[2018-06-03 14:31] VITALS: TEMP 99
--- NOTE | 2018-06-04 14:11 | DIS ---
FINAL DIAGNOSES: 1. Morbid obesity, persistent positive intake despite fluid restriction. 2. Severe deconditioning, cooperating minimally with therapy. 3. Lymphedema of the legs with resolved cellulitis. 4. Type 2 diabetes, controlled to goal. 5. Recurrent constipation secondary to narcotics, improved with Amitiza. 6. Diastolic heart failure, stable. 7. Chronic anxiety and occasional panic attacks. 8. Hypertension, well-controlled. 9. Hypothyroidism, well-controlled. 10. Anxiety and depression with recurrent panic attacks, persistent. HOSPITAL COURSE: The patient is a morbidly obese white female admitted to the skilled unit on 2017 after admission [facility] for an episode of cellulitis superimposed on her chronic lymphedema . On admission, she had complaints of dyspnea on exertion and a rash all over her entire body, the e tiology of which was never determined, although biopsy showed no fungus, cellulitis, more like psoria sis. It was finally treated with steroid cream and with Elimite for possible scabies with resolution after 1 week. She also complained of increased weight gain, shortness of breath and abdominal pain, was found to be chronically constipated, finally resolved with Amitiza therapy. She did gain a sign ificant amount of weight in the hospital, but was not compliant to fluid restriction until the end. Her O2 sats, however, remained normal at 97% on admission, remaining that way during her entire hospi amber stay. Pulse was 62, temperature is 99, blood pressure 140/63 on admission. White count was 4900 , hematocrit 26, hemoglobin 8.1, sodium 136, pH 5.0, chloride 97, bicarbonate 31, BUN 38, creatinine 1.37. Accu-Cheks were initially significantly elevated from 193-224, but then improved. Liver funct ion studies were normal. She cooperated minimally with therapy with multiple refusals and minimal im provement. On discharge, her insurance company states that she had reached maximum hospital benefit and was refusing to pay and therefore she was discharged home. At that time, her hemoglobin was 7.8, which was no significant change from admission of 8.1, white count 4900, platelet count was 216,000. Accu-Cheks had improved during the hospital on strict diet and sliding scale ranging from 97-162. Sodium was 136, potassium 4.6, chloride 97, bicarbonate 32, BUN 26, creatinine 1.49. Albumin was 2.9 , which was slightly improved from admission of 2.7. As mentioned above, she was only ambulating a f ew feet at a time secondary to noncompliance and has reached maximum hospital benefit. An echocardio gram was done to evaluate her poor exercise tolerance, she was found to have a normal ejection fracti on of 60-65%, mild concentric left ventricular hypertrophy. No regional wall abnormalities, moderate ly elevated right ventricular systolic pressure, possibly due to sleep apnea, but the patient has ref used a sleep study. She will be discharged home to follow up with her PCP. Prognosis is poor. She has no further evidence of cellulitis, but will be discharged home on Pen-Vee K per recommendations o f her Infectious Disease, Dr. Hang Phelan, who wished her to continue on this for 6-12 months to pr event recurrence. She will be followed by [facility]. MEDICATIONS ON DISCHARGE: Included amlodipine 2.5 daily. The betamethasone lotion twice daily to ra sh, doxepin 25 twice daily for anxiety and depression, famotidine 20 mg twice daily, ferrous sulfate 325 mg daily, furosemide 40 twice daily, gabapentin 300 twice daily, Humulin 70/30 60 units in the mo rning, hand held nebulizer with DuoNebs every 4 hours as needed, levothyroxine 125 mcg daily, Amitiza 24 mcg nightly, melatonin 9 mg nightly, metoprolol 50 mg twice daily, Pen-Vee K 250 twice daily, Alberto aLax 17 grams daily, trazodone 200 mg nightly, hydrocodone 10/325 every 4 hours as needed.
== END 2018-06-03 12:30 | disposition home health service (06) | DRG 596 ==
LOC: NAV ACUTE 16:45
PROVIDERS: ADMIT Internal Medicine; ATTEND Internal Medicine
DX: L40.9 Psoriasis, unspecified (principal); I50.32 Chronic diastolic (congestive) heart failure; N17.9 Acute kidney failure, unspecified; E66.2 Morbid (severe) obesity with alveolar hypoventilation; I13.0 Hypertensive heart and chronic kidney disease with heart failure and stage 1 through stage 4 chronic kidney disease, or unspecified chronic kidney disease; L03.115 Cellulitis of right lower limb; L03.116 Cellulitis of left lower limb; J44.9 Chronic obstructive pulmonary disease, unspecified; E78.5 Hyperlipidemia, unspecified; K29.70 Gastritis, unspecified, without bleeding; F41.9 Anxiety disorder, unspecified; F32.9 Major depressive disorder, single episode, unspecified; G89.29 Other chronic pain; I89.0 Lymphedema, not elsewhere classified; K75.81 Nonalcoholic steatohepatitis (NASH); K59.03 Drug induced constipation; T40.605A Adverse effect of unspecified narcotics, initial encounter; R09.02 Hypoxemia; E87.5 Hyperkalemia; L30.8 Other specified dermatitis; L28.0 Lichen simplex chronicus; Z91.19 Patient's noncompliance with other medical treatment and regimen; L29.9 Pruritus, unspecified; N18.9 Chronic kidney disease, unspecified; E11.22 Type 2 diabetes mellitus with diabetic chronic kidney disease; F41.0 Panic disorder [episodic paroxysmal anxiety]; B86 Scabies; Z96.651 Presence of right artificial knee joint
CPT/HCPCS: 36415; 36416; 71045; 74018; 80048; 80053; 81001; 84484; 85025; 93306; G8978-GP-CJ; G8979-GP-CI; J7620; Q0162